=== PATIENT | male | born 1940 | race Caucasian/White ===

== ENCOUNTER 2018-02-13 09:25 | Observation (INO) | payer MEDICARE ==
[~2018-02-13] VITALS: Ht 182.9 cm; Wt 85.5 kg
[~2018-02-13 09:25] MED LIST: DOXY100T19 PO
[2018-02-13 09:46] LABS: BASOPHILS % (AUTO) 0.2 % (0.0-5.0); HEMATOCRIT 49.9 % (42-54); LYMPHOCYTES % (AUTO) 31.4 % (21.0-51.0); MEAN CORPUSCULAR HEMOGLOBIN 29.2 pg (27.0-33.0); MEAN CORPUSCULAR HGB CONC 33.8 g/dL (32.0-36.0); MEAN CORPUSCULAR VOLUME 86.3 fL (79-99); NEUTROPHILS % (AUTO) 55.4 % (40.0-77.0); NUCLEATED RED BLOOD CELLS 0.1 % (0.0-0.19); PLATELET COUNT (AUTO) 168 K/uL (130-400); RED BLOOD CELL COUNT(AUTO) 5.78 MIL/uL (4.50-6.20); RED CELL DISTRIBUTION WIDTH 13.6 % (11.0-15.5); WHITE BLOOD COUNT (AUTO) 5.6 K/uL (4.8-10.8)
[2018-02-13 09:49] LABS: CREATININE 1.2 mg/dL (0.5-1.5)
[2018-02-13 10:03] LABS: PARTIAL THROMBOPLASTIN TIME 24.2 SEC (26.3-35.5); PROTHROMBIN TIME 10.5 SEC (9.6-11.6)
[2018-02-13 10:04] LABS: ALBUMIN 3.9 g/dL (3.5-5.0); BILIRUBIN,TOTAL 0.6 mg/dL (0.2-1.0); CREATINE KINASE MB 1.1 ng/mL (0.5-3.6); TOTAL PROTEIN, SERUM 7.1 g/dL (6.0-8.3)
[2018-02-13 10:22] LABS: B-TYPE NATRIURETIC PEPTIDE 23 pg/mL (0-100)
[2018-02-13 14:20] VITALS: BP 143/86
[2018-02-13] MEDS ORDERED: VIT1CAPS5 PO (15:38)
[2018-02-13] MEDS ORDERED: CETI10CA5 PO (15:38)
[2018-02-13] MEDS ORDERED: CYAN250014 PO (15:38)
[2018-02-13] MEDS ORDERED: OMEG-103 PO (15:38)
[2018-02-13] MEDS ORDERED: FENO54TA6 PO (16:51)
[2018-02-13] MEDS ORDERED: ASPI-1181 PO (16:54)
[2018-02-13] MEDS ORDERED: LACTULOSE 20 GM/30 ML UDCUP PO PRN (17:00)
[2018-02-13] MEDS ORDERED: PROCHLORPERAZINE EDISYLATE 10 MG/2 ML VIAL IV PRN (17:00)
[2018-02-13] MEDS ORDERED: POTASSIUM CHLORIDE 10% ELIXIR 20 MEQ/15 ML UDCUP PO PRN (17:00)
[2018-02-13] MEDS ORDERED: MAG HYDROX/AL HYDROX/SIMETH ES 30 ML SUSP UDCUP PO PRN (17:00)
[2018-02-13] MEDS ORDERED: POTASSIUM CHLORIDE 20 MEQ ERTAB PO PRN (17:00)
[2018-02-13] MEDS ORDERED: POTASSIUM CHLORIDE 20MEQ/100ML 100 ML IV PRN (17:00)
[2018-02-13] MEDS ORDERED: ACETAMINOPHEN 325 MG TAB PO PRN ×2 (17:00)
[2018-02-13] MEDS ORDERED: LIDOCAINE HCL-MPF 1% 2ML VIAL IVP PRN (17:00)
[2018-02-13] MEDS: SODIUM CHLORIDE 0.9% 1000ML 1,000 ML IV SCH (17:39)
[2018-02-13 19:00] VITALS: BP 118/51
[2018-02-13] MEDS: LEVETIRACETAM 500 MG TABLET PO SCH (20:56)
[2018-02-13 23:00] VITALS: BP 96/63
[2018-02-14] MEDS: SODIUM CHLORIDE 0.9% 1000ML 1,000 ML IV SCH (03:18)
[2018-02-14 04:22] VITALS: BP 103/58
[2018-02-14 07:30] VITALS: BP 127/75
[2018-02-14 08:49] LABS: APPEARANCE,URINE Clear (CLEAR); BILIRUBIN,URINE Negative (NEGATIVE); COLOR,URINE Yellow (YELLOW); GLUCOSE, URINE (UA) Negative (NEGATIVE); KETONES,URINE Negative (NEGATIVE); LEUKOCYTE ESTERASE ,URINE Negative (NEGATIVE); NITRATE,URINE Negative (NEGATIVE); OCCULT BLOOD,URINE Negative (NEGATIVE); PH,URINE 5.5 (5.0-8.0); PROTEIN,URINE Negative (NEGATIVE); UROBILINOGEN,URINE 0.2 mg/dL (0.2-1.0)
[2018-02-14 08:56] LABS: AMPHET/METH SCREEN,URINE NEGATIVE (NEGATIVE); BARBITURATE SCREEN, URINE NEGATIVE (NEGATIVE); BENZODIAZEPINES SCREEN,URINE NEGATIVE (NEGATIVE); CANNABINOID SCREEN,URINE NEGATIVE (NEGATIVE); COCAINE SCREEN,URINE NEGATIVE (NEGATIVE); OPIATE SCREEN,URINE NEGATIVE (NEGATIVE); PHENCYCLIDINE SCREEN,URINE NEGATIVE (NEGATIVE)
[2018-02-14] MEDS: LEVETIRACETAM 500 MG TABLET PO SCH (09:56)
[2018-02-14 11:00] VITALS: BP 111/70
[2018-02-14 16:00] VITALS: BP 112/75
[2018-02-15] MEDS ORDERED: LEVE500T8 PO (08:10)
== END 2018-02-14 19:15 | disposition home or self-care (01) ==
LOC: EDH 09:25 → EDHIP 13:14 → 3AH 13:58
PROVIDERS: ADMIT Internal Medicine; ATTEND Internal Medicine
DX: R56.9 Unspecified convulsions (principal); E78.2 Mixed hyperlipidemia; I49.5 Sick sinus syndrome; J44.9 Chronic obstructive pulmonary disease, unspecified; I25.10 Atherosclerotic heart disease of native coronary artery without angina pectoris; Z85.46 Personal history of malignant neoplasm of prostate; Z85.828 Personal history of other malignant neoplasm of skin; Z80.3 Family history of malignant neoplasm of breast; Z82.0 Family history of epilepsy and other diseases of the nervous system; Z82.49 Family history of ischemic heart disease and other diseases of the circulatory system; Z90.79 Acquired absence of other genital organ(s); Z95.0 Presence of cardiac pacemaker; Z79.82 Long term (current) use of aspirin; Z79.899 Other long term (current) drug therapy; Z79.01 Long term (current) use of anticoagulants; Z82.5 Family history of asthma and other chronic lower respiratory diseases; Z83.3 Family history of diabetes mellitus
CPT/HCPCS: 36415; 70450; 71045; 80053; 80305; 81003; 82550; 82553; 83735; 83874; 83880; 84484; 85025; 85610; 85730; 93005; 93306; 93880; 99285; G0378 ×30; J7030; 96360; 96361

== ENCOUNTER → 2019-04-23 | Outpatient (CLI) | payer MEDICARE ==
[~2019-04-23] MED LIST changes: +ASPI-1181 PO; +CETI10CA5 PO; +CYAN250014 PO; -DOXY100T19 PO; +FENO54TA6 PO; +LEVE-43 PO; +OMEG-103 PO; +VIT1CAPS5 PO
== END | disposition home or self-care (01) ==
LOC: SHCH 16:06
PROVIDERS: ATTEND Internal Medicine Cardiovascular Disease
DX: I35.0 Nonrheumatic aortic (valve) stenosis (principal); I35.1 Nonrheumatic aortic (valve) insufficiency
CPT/HCPCS: 93306

== ENCOUNTER → 2020-11-22 | Outpatient (CLI) | payer MEDICARE ==
[~2020-11-22] MED LIST changes: -ASPI-1181 PO; +ASPI-1443 PO
== END | disposition home or self-care (01) ==
LOC: SHCH 15:33
PROVIDERS: ATTEND Internal Medicine Cardiovascular Disease
DX: I35.0 Nonrheumatic aortic (valve) stenosis (principal)
CPT/HCPCS: 93306; 93356

== ENCOUNTER 2020-12-30 05:51 | Observation (INO) | payer MEDICARE ==
[2020-12-28 10:40] LABS: BASOPHILS % (AUTO) 0.3 % (0.0-5.0); EOSINOPHILS % (AUTO) 1.4 % (0.0-8.0); HEMATOCRIT 48.2 % (42-54); LYMPHOCYTES % (AUTO) 25.1 % (21.0-51.0); MEAN CORPUSCULAR HEMOGLOBIN 28.8 pg (27.0-33.0); MEAN CORPUSCULAR HGB CONC 33.6 g/dL (32.0-36.0); MEAN CORPUSCULAR VOLUME 85.6 fL (79-99); MONOCYTES % (AUTO) 10.4 % (3.0-13.0); NEUTROPHILS % (AUTO) 62.3 % (40.0-77.0); PLATELET COUNT (AUTO) 162 K/uL (130-400); RED BLOOD CELL COUNT(AUTO) 5.63 MIL/uL (4.50-6.20); RED CELL DISTRIBUTION WIDTH 12.5 % (11.0-15.5); WHITE BLOOD COUNT (AUTO) 6.5 K/uL (4.8-10.8)
[2020-12-28 10:44] LABS: APPEARANCE,URINE Clear (CLEAR); BILIRUBIN,URINE Negative (NEGATIVE); COLOR,URINE Yellow (YELLOW); GLUCOSE, URINE (UA) Negative (NEGATIVE); KETONES,URINE Negative (NEGATIVE); LEUKOCYTE ESTERASE ,URINE Negative (NEGATIVE); NITRATE,URINE Negative (NEGATIVE); OCCULT BLOOD,URINE Negative (NEGATIVE); PH,URINE 8.5 (5.0-8.0); PROTEIN,URINE Negative (NEGATIVE); UROBILINOGEN,URINE 0.2 mg/dL (0.2-1.0)
[2020-12-28 10:50] LABS: INR 1.03 (0.85-1.15); PROTHROMBIN TIME 11.2 SEC (9.6-11.6)
[2020-12-28 10:51] LABS: CREATININE 0.8 mg/dL (0.5-1.5); POTASSIUM 4.5 mmol/L (3.5-5.1)
[2020-12-28 10:52] LABS: PARTIAL THROMBOPLASTIN TIME 26.8 SEC (26.3-35.5)
[2020-12-29 09:18] VITALS: BP 137/82
[2020-12-30] VITALS (13 sets, daily range): BP systolic 112–156; BP diastolic 60–91
[~2020-12-30] VITALS: Ht 198.1 cm; Wt 84.8 kg
[~2020-12-30 05:51] MED LIST changes: -CYAN250014 PO; +CYAN50009 SL; -FENO54TA6 PO; +KRIL1CAP19 PO; -LEVE-43 PO; +LEVETIRACETAM PO; +LOVA20TA3 PO; +MULT-1333 PO; -OMEG-103 PO; +OXCA150T27 PO
[2020-12-30] MEDS ORDERED: 0.9%NACL 1000ML 1,000 ML IV ONE (06:12)
[2020-12-30] MEDS ORDERED: HEPARIN 10,000 UNIT/10ML (1,000 UNIT/ML) VIAL ONE (07:33)
[2020-12-30] MEDS ORDERED: IOHEXOL 350 MG/ML 100ML INFUS..BTL IV ONE ×2 (07:33→07:34)
[2020-12-30] MEDS ORDERED: NITROGLYCERIN 2 MG VIAL IV ONE (07:33)
[2020-12-30] MEDS ORDERED: IOHEXOL-350 50ML VIAL IV ONE (07:33)
[2020-12-30] MEDS ORDERED: LIDOCAINE HCL 400MG/20ML VIAL ONE (07:34)
[2020-12-30] MEDS ORDERED: 0.9%NACL 1000ML 1,000 ML IV SCH ×2 (08:00→10:00)
[2020-12-30] MEDS ORDERED: MIDAZOLAM HCL 1 MG/ML 2ML VIAL ONE (08:25)
[2020-12-30] MEDS ORDERED: FENTANYL CITRATE PF 50 MCG/1 ML 2ML VIAL ONE (08:25)
[2020-12-30] MEDS ORDERED: BIVALIRUDIN 250 MG/VIAL IV ONE (08:45)
[2020-12-30] MEDS ORDERED: TICAGRELOR 90 MG TABLET ONE (09:38)
[2020-12-30] MEDS ORDERED: ASPIRIN 81MG CHEW TAB ONE (09:41)
[2020-12-30] MEDS ORDERED: HYDRALAZINE 20MG/ML VIAL IV PRN (10:00)
[2020-12-30] MEDS ORDERED: NITROGLYCERIN 0.4 MG SL TAB SL PRN (10:00)
[2020-12-30] MEDS ORDERED: DEXTROSE 50%-WATER 50 ML DISP.SYRIN IV PRN (10:00)
[2020-12-30] MEDS ORDERED: GLUCAGON 1MG KIT 1 MG ML IM PRN (10:00)
[2020-12-30] MEDS: TICAGRELOR 90 MG TABLET PO SCH (20:36)
[2020-12-30] MEDS: LEVETIRACETAM 500 MG TABLET PO SCH (20:36)
[2020-12-30] MEDS: OXCARBAZEPINE 300 MG TAB PO SCH (20:36)
[2020-12-30] MEDS ORDERED: ASPIRIN 81 MG EC TAB PO SCH (21:00)
[2020-12-30] MEDS ORDERED: CETIRIZINE HCL 5 MG TABLET PO SCH (21:00)
[2020-12-31 03:51] VITALS: BP 125/76
[2020-12-31 05:14] LABS: MEAN CORPUSCULAR HEMOGLOBIN 29.6 pg (27.0-33.0); MEAN CORPUSCULAR HGB CONC 34.1 g/dL (32.0-36.0); MEAN CORPUSCULAR VOLUME 86.8 fL (79-99); RED BLOOD CELL COUNT(AUTO) 5.07 MIL/uL (4.50-6.20); RED CELL DISTRIBUTION WIDTH 12.8 % (11.0-15.5); WHITE BLOOD COUNT (AUTO) 8.6 K/uL (4.8-10.8)
[2020-12-31 05:27] LABS: CREATININE 0.9 mg/dL (0.5-1.5); POTASSIUM 4.1 mmol/L (3.5-5.1)
[2020-12-31] MEDS: LEVETIRACETAM 500 MG TABLET PO SCH (07:21)
[2020-12-31] MEDS: OXCARBAZEPINE 300 MG TAB PO SCH (07:21)
[2020-12-31] MEDS: TICAGRELOR 90 MG TABLET PO SCH (07:22)
[2020-12-31 07:44] VITALS: BP 131/81
== END 2020-12-31 12:00 | disposition home or self-care (01) ==
LOC: DAH 05:51 → DAHIP 05:52 → DAH 05:52 → 4CH 14:56
PROVIDERS: ADMIT Internal Medicine Cardiovascular Disease; ATTEND Internal Medicine Cardiovascular Disease
DX: I20.8 Other forms of angina pectoris (principal); I35.0 Nonrheumatic aortic (valve) stenosis
CPT/HCPCS: 36415 ×3; 71045; 80048 ×2; 80061; 81003; 82948; 83880; 85025; 85027; 85610; 85730; 93005; 93460; 96360; A4215; A4216; A4221; A4222; A4223 ×3; A4606; A4663; C1725; C1760; C1769 ×3; C1874; C1887; C1894 ×3; C9600; G0378 ×26; J0583; J1644 ×2; J2250; J3010; J3490 ×2; J7030; Q9965 ×2; Q9967 ×3; 99156; 99157

== ENCOUNTER → 2021-07-13 | Outpatient (CLI) | payer MEDICARE | END | disposition home or self-care (01) | LOC: SHCH 13:20 | PROVIDERS: ATTEND Internal Medicine Cardiovascular Disease | DX: I35.2 Nonrheumatic aortic (valve) stenosis with insufficiency (principal); I51.7 Cardiomegaly; Z98.61 Coronary angioplasty status | CPT/HCPCS: 93306 ==

== ENCOUNTER 2022-04-06 12:07 | Emergency (ER) | payer MEDICARE ==
[~2022-04-06] VITALS: Ht 182.9 cm; Wt 81.6 kg
[2022-04-06 13:06] LABS: BASOPHILS % (AUTO) 0.3 % (0.0-5.0); EOSINOPHILS % (AUTO) 0.5 % (0.0-8.0); LYMPHOCYTES % (AUTO) 17.6 % (21.0-51.0); MEAN CORPUSCULAR HEMOGLOBIN 29.5 pg (27.0-33.0); MEAN CORPUSCULAR HGB CONC 34.4 g/dL (32.0-36.0); MEAN CORPUSCULAR VOLUME 85.6 fL (79-99); NEUTROPHILS % (AUTO) 73.3 % (40.0-77.0); PLATELET COUNT (AUTO) 151 K/uL (130-400); RED BLOOD CELL COUNT(AUTO) 5.26 MIL/uL (4.50-6.20); RED CELL DISTRIBUTION WIDTH 12.6 % (11.0-15.5); WHITE BLOOD COUNT (AUTO) 7.5 K/uL (4.8-10.8)
[2022-04-06 13:16] LABS: CREATININE 0.8 mg/dL (0.5-1.5); POTASSIUM 4.8 mmol/L (3.5-5.1)
[2022-04-06 15:58] VITALS: BP 163/71
== END 2022-04-06 15:59 | disposition home or self-care (01) ==
LOC: EDH 12:07
DX: I73.9 Peripheral vascular disease, unspecified (principal); G40.909 Epilepsy, unspecified, not intractable, without status epilepticus; Z79.82 Long term (current) use of aspirin; Z95.810 Presence of automatic (implantable) cardiac defibrillator
CPT/HCPCS: 36415; 80053; 85025; 93005

== ENCOUNTER → 2022-04-10 | Outpatient (CLI) | payer MEDICARE | END | disposition home or self-care (01) | LOC: SHCH 12:19 | PROVIDERS: ATTEND Internal Medicine Cardiovascular Disease | DX: I87.2 Venous insufficiency (chronic) (peripheral) (principal) | CPT/HCPCS: 93970 ==

== ENCOUNTER → 2022-04-23 | Outpatient (CLI) | payer MEDICARE | END | disposition home or self-care (01) | LOC: SHCH 15:11 | PROVIDERS: ATTEND Internal Medicine Cardiovascular Disease | DX: I87.2 Venous insufficiency (chronic) (peripheral) (principal); Z98.890 Other specified postprocedural states | CPT/HCPCS: 93971 ==

== ENCOUNTER → 2024-03-16 | Outpatient (CLI) | payer MEDICARE | END | disposition home or self-care (01) | LOC: SHCH 11:00 | PROVIDERS: ATTEND Internal Medicine Cardiovascular Disease | DX: I08.3 Combined rheumatic disorders of mitral, aortic and tricuspid valves (principal) | CPT/HCPCS: 93306; 93356 ==

== ENCOUNTER 2024-06-17 06:58 | Day surgery (SDC) | payer MEDICARE ==
[2024-06-15 12:49] VITALS: BP 125/73; PULSE 71; RESP 18; TEMP 97.8
[2024-06-15 13:20] LABS: APPEARANCE,URINE CLEAR (CLEAR); BILIRUBIN,URINE NEGATIVE (NEGATIVE); COLOR,URINE LIGHT-YELLOW (YELLOW); GLUCOSE, URINE (UA) NEGATIVE (NEGATIVE); KETONES,URINE NEGATIVE (NEGATIVE); LEUKOCYTE ESTERASE ,URINE NEGATIVE Leu/uL (NEGATIVE); NITRATE,URINE NEGATIVE (NEGATIVE); OCCULT BLOOD,URINE NEGATIVE (NEGATIVE); PH,URINE 6.5 (5.0-8.0); PROTEIN,URINE NEGATIVE (NEGATIVE); UROBILINOGEN,URINE 0.2 mg/dL (0.2-1.0)
[2024-06-15 13:20] LABS: HEMATOCRIT 46.1 % (42-54); LYMPHOCYTES # (AUTO) 1.7 K/uL (1.0-4.8); LYMPHOCYTES % (AUTO) 33.4 % (21.0-51.0); MEAN CORPUSCULAR HEMOGLOBIN 29.6 pg (27.0-33.0); MEAN CORPUSCULAR HGB CONC 33.8 g/dL (32.0-36.0); MEAN CORPUSCULAR VOLUME 87.5 fL (79-99); MONOCYTES # (AUTO) 0.6 K/uL (0.1-1.0); MONOCYTES % (AUTO) 12.6 % (3.0-13.0); NEUTROPHILS # (AUTO) 2.6 K/uL (1.8-7.7); PLATELET COUNT (AUTO) 145 K/uL (130-400); RED BLOOD CELL COUNT(AUTO) 5.27 MIL/uL (4.50-6.20); RED CELL DISTRIBUTION WIDTH 12.4 % (11.0-15.5)
[2024-06-15 13:26] LABS: ADD UA MICROSCOPIC NO
[2024-06-15 13:29] LABS: CREATININE 0.8 mg/dL (0.5-1.3); POTASSIUM 4.4 mmol/L (3.5-5.1)
[2024-06-15 13:32] LABS: INR 0.97 (0.85-1.15); PROTHROMBIN TIME 10.9 SEC (9.6-11.6)
[2024-06-15 13:33] LABS: PARTIAL THROMBOPLASTIN TIME 26.2 SEC (26.3-35.5)
[2024-06-15 14:03] LABS: B-TYPE NATRIURETIC PEPTIDE 98 pg/mL (0-100)
--- NOTE | 2024-06-15 14:46 | HMCIMG ---
CHEST 1VW HISTORY: Preop COMPARISON: 12/28/2020 FINDINGS: A frontal projection of the chest was obtained. No acute pulmonary infiltrates is seen. The heart is borderline enlarged. Pacemaker is seen entering from the left. Degenerative changes are seen. Tortuosity of aorta is seen. No evidence of aortic calcification is seen. IMPRESSION: 1. No acute pulmonary infiltrate is seen.
--- NOTE | 2024-06-16 06:31 | EKG ---
[facility] Test Date: 2024-06-15 Test Time: 13:38:10 Pat Name: MARYAM WITT Department: [facility] Room: Gender: M Ged Instructor: [id number] : 1940 Requested By: ORION GUTIERREZ Order Number: [id number] Reading MD: Geo Ramírez Measurements Intervals [place] Rate: 71 P: 0 IA: 196 QRS: -67 QRSD: 161 T: 84 QT: 435 QTc: 474 Interpretive Statements Atrial-paced rhythm RBBB and LAFB Probable left ventricular hypertrophy Compared to ECG 04/06/2022 14:32:55 Bifascicular block no longer present Myocardial infarct finding no longer present Electronically Signed On 06-16-2024 20:50:32 [employer] by Geo Ramírez Please click the below link to view image of tracing.
[2024-06-17] VITALS (9 sets, daily range): BP systolic 109–144; BP diastolic 63–74; PULSE 53–71; RESP 13–18; TEMP 96.7–97.7
[~2024-06-17] VITALS: Ht 182.9 cm; Wt 86.4 kg
[~2024-06-17 06:58] MED LIST changes: +CLOP75TA32 PO; +IMIQUIMOD 5% TD; -KRIL1CAP19 PO; +LEVE750T10 PO; -LEVETIRACETAM PO; -LOVA20TA3 PO; +ROSU5TAB51 PO
[2024-06-17] MEDS: 0.9%NACL 1000ML 1,000 ML IV SCH (07:33)
[2024-06-17] MEDS ORDERED: HEParin 10,000 UNIT/10ML (1,000 UNIT/ML) VIAL ONE (08:36)
[2024-06-17] MEDS ORDERED: FENTanyl CITRate PF 50 MCG/1 ML 2ML VIAL ONE (08:36)
[2024-06-17] MEDS ORDERED: LIDOCAINE HCL 400MG/20ML VIAL ONE (08:36)
[2024-06-17] MEDS ORDERED: IOHEXOL 350 MG/ML 100ML INFUS..BTL IV ONE ×2 (08:36→11:00)
[2024-06-17] MEDS ORDERED: BIVALIRUDIN 250 MG/VIAL IV ONE (08:36)
[2024-06-17] MEDS ORDERED: MIDAZOLAM HCL 1 MG/ML 2ML VIAL ONE (08:36)
[2024-06-17] MEDS ORDERED: NITROGLYCERIN 50MG VIAL ONE (08:37)
[2024-06-17] MEDS ORDERED: HEParin-NS 1,000 UNIT/500 ML 1,000 ML IV ONE (08:37)
[2024-06-17] MEDS ORDERED: metoPROLOL tartRATE 1 MG/ML 5ML VIAL IV PRN (09:30)
[2024-06-17] MEDS ORDERED: DEXTROSE 50%-WATER 50 ML DISP.SYRIN IV PRN (09:30)
[2024-06-17] MEDS ORDERED: GLUCAGON 1MG KIT 1 MG ML IM PRN (09:30)
[2024-06-17] MEDS ORDERED: NITROGLYCERIN 0.4 MG SL TAB SL PRN (09:30)
--- NOTE | 2024-06-17 10:25 | NUR ---
CT: TRANSFERRED TO CT VIA BED. PT [id number].
--- NOTE | 2024-06-17 11:00 | NUR ---
CT; RETURNED FROM CT VIA BED, AAA X 3
--- NOTE | 2024-06-17 16:48 | HMCIMG ---
CT ANGIO TAVR PROTOCOL HISTORY: Aortic valvular stenosis COMPARISON: None TECHNIQUE: CT angiography of the chest , abdomen and pelvis was performed. The study was performed using angiographic technique with maximum intensity projection reconstruction images. Patient was given 100 cc of Omnipaque through intravenous route. FINDINGS: No CT evidence of filling defect is seen to suggest pulmonary embolus. No CT evidence of aortic dissection is seen. Mild interstitial fibrotic changes are seen. No evidence of parenchymal disease is seen. No CT evidence of pleural effusion or pericardial effusion is seen. The heart is enlarged. Pacemaker is seen entering from the left. The liver, spleen, adrenal glands and pancreas are unremarkable. There is no evidence of hydronephrosis bilaterally. No evidence of renal stone is seen. Fecal material is seen in the colon. There are normal size retroperitoneal and mesenteric lymph nodes. No ascites is seen. Atherosclerotic changes are present. There is diffuse atherosclerotic disease. No evidence of abdominal aortic aneurysm is seen. The celiac, superior mesenteric and bilateral renal arteries are grossly patent. The visualized portion of the iliac and femoral arterial systems are also grossly patent. Pelvic sidewalls are symmetric bilaterally. Bladder is well distended without wall thickening. IMPRESSION: 1. Atherosclerotic disease. Otherwise unremarkable CT angiogram study. Diverticulosis. No pleural effusion or ascites is seen. CT was performed with one or more following dose reduction techniques: automated exposure control, adjustment of the mA and kv according to patient's size, or use of a iterative reconstruction technique.
--- NOTE | 2024-06-18 20:13 | CARDIOLOGY ---
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 A dedicated, limited window, coronary imaging protocol was used, with single breath-hold, retrospective ECG gating, and automated arrhythmia rejection. 100 cc of low osmolar contrast agent: Omnipaque 350 was delivered via a 18-gauge IV catheter in the right antecubital fossa, using a power injector and followed by 60 cc of normal saline bolus as a chaser. Collimated images were reformatted at 0.5 mm intervals, and sent to an offline independent workstation for interpretation, using 3D anatomic reconstructions: Curved multiplanar reconstructions, maximum intensity projections, and multiplanar imaging. No metoprolol was administered prior to scanning due to low baseline heart rate. No SL nitroglycerin was given. CORONARY ARTERY DESCRIPTIONS: The coronary arteries arise in normal position. Left main coronary artery: Normal caliber vessel that bifurcates into the LAD and LCx. No stenosis. Left anterior descending coronary artery: Normal caliber vessel and gives rise to diagonal and septal branches. LETY in the proximal LAD. No stenosis. Left circumflex coronary artery: Normal caliber, nondominant and gives rise to two small OM 1 and OM 2 branches and a large OM 3 branch. No stenosis. Right coronary artery: Large, dominant vessel giving rise to the PL and PDA branches. No stenosis. CAD-RADs: 0, absence of CAD. Thoracic Aorta: Proximal ascending aortic aneurysm, at 4.5 cm. Kymberly Frank MD Cardiovascular Disease [facility] KYMBERLY FRANK MD Jun 18, 2024 20:13
== END 2024-06-17 11:40 | disposition home or self-care (01) ==
LOC: DAH 06:58
PROVIDERS: ATTEND Internal Medicine Cardiovascular Disease
DX: I25.118 Atherosclerotic heart disease of native coronary artery with other forms of angina pectoris (principal); I35.0 Nonrheumatic aortic (valve) stenosis; I50.32 Chronic diastolic (congestive) heart failure; E78.5 Hyperlipidemia, unspecified; I87.1 Compression of vein; R01.1 Cardiac murmur, unspecified; I87.2 Venous insufficiency (chronic) (peripheral); Z82.49 Family history of ischemic heart disease and other diseases of the circulatory system; Z87.891 Personal history of nicotine dependence; Z95.5 Presence of coronary angioplasty implant and graft; Z95.0 Presence of cardiac pacemaker; Z79.82 Long term (current) use of aspirin; Z79.899 Other long term (current) drug therapy
CPT/HCPCS: 80048; 83880; 85025; 85610; 85730; 81003; 36415; 71045; 93005; 93454; 74174; 75574; C1894 ×2; Q9965; J3010; J3490 ×2; J7030; J2250; J1644; Q9967; A4215; A4222; A4221; A4663; A4216; A4606; A4223 ×3; 99156; 99157; J0583

== ENCOUNTER → 2024-08-10 | Outpatient (CLI) | payer MEDICARE ==
--- NOTE | 2024-08-12 08:32 | HMCSR ---
APPROVED REPORT EXAM: Two-dimensional and M-mode echocardiogram with Doppler and color Doppler. INDICATION ICD: I35.0 Non-rheumatic aortic valve stenosis 2D Dimensions RVDd3.5 cmLVEF(%)66.4 (>50%)LVED Vol(simp.)152.0 mL IVSd1.8 (0.7-1.1cm)FS(%)37 %LVES Vol(simp.)49.4 mL LVDd5.4 (3.8-5.6cm)LA (2D)4.5 (1.6-4.0cm)LVEF(%, simp.)68 % PWd1.1 (0.7-1.1cm)Ao Root(2D)3.4 (2.0-3.7cm)LA ESV INDEX (4CH)23.80 mL/m2 IVSs2.3 cmLA ESV INDEX (2CH)33.50 mL/m2 LVDs3.4 (2.5-4.0cm)LA ESV INDEX (BP)29.90 mL/m2 PWs1.9 cm M-Mode Dimensions EPSS1.7 cm LA (MM)4.6 (1.6-4.0cm) Ao Root(MM)3.5 (2.0-3.7cm) Aortic Valve AoV VTI0.4 mAo Mean GR7.0 mmHgLVOT VTI0.31 m Al P1/2T392 ms Mitral Valve MV E Vmax50.4 cm/sDECEL Miwj546 ms MV A Vmax86.8 cm/sP 1/2 T84 ms E/A ratio0.6MVA (PHT)2.6 cm2 MR Max PG92 mmHg TDI E/E' Cwfzwv99.9E/E' Lateral6.2 Medial E' Peak V3.90 cm/sLateral E' Peak V8.10 cm/s Tricuspid Valve TR Vmax2.0 m/s TR Peak GR15.4 mmHg Left Ventricle The left ventricle is normal size. There is normal LV segmental wall motion. Moderate left ventricula r hypertrophy. LVEF is 65-70%. The left ventricular diastolic function is normal. Right Ventricle The right ventricle is normal size. The right ventricular systolic function is normal. Atria The left atrium size is normal. The right atrium size is normal. Aortic Valve TAVR prosthetic is noted with no elevated velocities noted across prosthesis Trivial to mild aortic i nsufficiency noted There is no aortic valvular stenosis. Mitral Valve The mitral valve is normal in structure. Mitral regurgitation is mild. There is no mitral valve steno sis. Tricuspid Valve The tricuspid valve is normal in structure. There is mild tricuspid valve regurgitation noted. Pulmonic Valve The pulmonary valve is normal in structure. There is no pulmonic valvular regurgitation. Great Vessels The aortic root is normal in size. The IVC is normal in size and collapses >50% with inspiration. Pericardium There is no pericardial effusion. Conclusion LVEF is 65-70%. There is normal LV segmental wall motion. TAVR prosthetic is noted with no elevated velocities noted across prosthesis
== END | disposition home or self-care (01) ==
LOC: RAH 14:20
PROVIDERS: ATTEND Internal Medicine Cardiovascular Disease
DX: I08.3 Combined rheumatic disorders of mitral, aortic and tricuspid valves (principal)
CPT/HCPCS: 93306